=== PATIENT | female | born 1960 ===

== ENCOUNTER 2019-03-21 13:49 | Outpatient (CLI) | payer OTHER ==
--- NOTE | 2019-03-21 14:28 | General Progress Note ---
Assessment/Plan Problem List: (1) Chronic constipation ICD Codes: K59.09 - Other constipation SNOMED: 212294493 Assessment/Plan: linzess 290 plan repeat colon in 2 years Subjective ROS Limited/Unobtainable: Yes Objective General Appearance: alert EENT: normal ENT inspection Neck: supple Cardiovascular: normal rate Respiratory/Chest: decreased breath sounds Abdomen: normal bowel sounds, non tender, soft Extremities: non-tender Floyd Rubalcava MD March 21, 2019 14:28
[2019-03-21] MEDS ORDERED: PROVERA2.5 MG ORAL (16:21)
[2019-03-21] MEDS ORDERED: UNOBMED (16:21)
[2019-03-21] MEDS ORDERED: FLUOXETINE HCL10 MG ORAL (16:21)
[2019-03-21 16:22] VITALS: BP 105/76
== END 2019-03-21 15:49 | disposition home or self-care (01) ==
LOC: PAN 13:49
DX: K59.09 Other constipation (principal)
CPT/HCPCS: 99212